=== PATIENT | male | born 1970 | race Caucasian/White ===

== ENCOUNTER 2017-01-20 14:54 | Emergency (ER) | payer BC ==
[2017-01-20 15:01] VITALS: BP 147/102; PULSE 124; TEMP 100.3; BMI 31.8
[2017-01-20] MEDS ORDERED: ACETAMINOPHEN 325 MG TABLET (FP) PO ONE (15:01)
--- NOTE | 2017-01-20 15:59 | PDOC ---
History of Present Illness - General Chief Complaint: Sore Throat Stated Complaint: SORE THROAT,WEAKNESS Time Seen by Provider: 01/20/17 14:57 History Source: Patient Exam Limitations: No Limitations - History of Present Illness Initial Comments: 01/20/17 15:54 CC sore throat, fever, body aches; with cough x today Timing/Duration: 4-6 hours Severity: moderate Associated Symptoms: reports: cough, fever/chills, malaise. denies: chest pain , rash Past History - Past Medical History Allergies/Adverse Reactions: Allergies Allergy/AdvReac Type Severity Reaction Status Date / Time No Known Allergies Allergy Verified 01/20/17 14:57 Home Medications: Ambulatory Orders NK [No Known Home Medication] 08/25/15 Other medical history: Gout - Psycho/Social/Smoking Cessation Hx Anxiety: No Suicidal Ideation: No Smoking Status: No Smoking History: Never smoked Number of Cigarettes Smoked Daily: 0 Hx Alcohol Use: Yes (OCCAS) Drug/Substance Use Hx: No Substance Use Type: Alcohol Review of Systems - Review of Systems Constitutional: Yes: Chills, Fever, Malaise HEENTM: Yes: Nose Congestion. No: Throat Swelling, Mouth Swelling Respiratory: No: Cough Cardiac (ROS): No: Symptoms Reported ABD/GI: No: Symptoms Reported *Physical Exam - Vital Signs Last Vital Signs Temp Pulse Resp BP Pulse Ox 100.3 F H 124 H 19 147/102 97 01/20/17 14:57 01/20/17 14:57 01/20/17 14:57 01/20/17 14:57 01/20/17 14:57 - Physical Exam General Appearance: Yes: Appropriately Dressed. No: Apparent Distress HEENT: positive: TMs Normal, Pharyngeal Erythema, Nasal Congestion, Rhinorrhea, TM Bulging. negative: TM Dull, TM Erythema Neck: positive: Supple, Lymphadenopathy (R), Lymphadenopathy (L). negative: Tender, Rigid Respiratory/Chest: positive: Lungs Clear, Normal Breath Sounds. negative: Respiratory Distress, Accessory Muscle Use Cardiovascular: positive: Regular Rhythm, Regular Rate. negative: Murmur ED Treatment Course - ADDITIONAL ORDERS Additional order review: 01/20/17 15:15 Influenza Types A,B Antigen (MAURY) - Final Nasopharyngeal Swab - Final 01/20/17 14:56 Group A Strep Rapid Antigen - Final Throat Medical Decision Making - Medical Decision Making 01/20/17 15:56 strep negative; flu a positive; will treat with tamiflu *DC/Admit/Observation/Transfer Diagnosis at time of Disposition: Influenza due to influenza virus, type A, human - Discharge Dispostion Disposition: HOME Condition at time of disposition: Stable Admit: No - Patient Instructions Additional Instructions: rest, lots of fluids; rest at home; start tamiflu - Post Discharge Activity Work/School Note: Back to Work
== END 2017-01-20 16:11 | disposition home or self-care (01) ==
LOC: JERFT 14:54
DX: J09.X2 Influenza due to identified novel influenza A virus with other respiratory manifestations (principal)
CPT/HCPCS: 87070; 87430; 87804; 99281-25

== ENCOUNTER 2019-02-02 11:43 | Emergency (ER) | payer BC ==
[2019-02-02 12:05] VITALS: BP 142/92; TEMP 99.6; BMI 33.6
[2019-02-02] MEDS ORDERED: INDOMETHACIN 50 MG CAPSULE PO ONE (12:20)
--- NOTE | 2019-02-02 12:38 | PDOC ---
History of Present Illness - General Chief Complaint: Pain, Acute Stated Complaint: GOUT Time Seen by Provider: 02/02/19 12:05 History Source: Patient - History of Present Illness Occurred: reports: other Lower Extremity Pain Location: left: knee Past History - Past Medical History Allergies/Adverse Reactions: Allergies Allergy/AdvReac Type Severity Reaction Status Date / Time No Known Allergies Allergy Verified 02/02/19 12:14 Home Medications: Ambulatory Orders Allopurinol 300 mg PO DAILY 02/02/19 Colchicine 0.6 mg PO ASDIR #15 capsule 02/02/19 Colchicine [Colcrys] 0.6 mg PO BID 02/02/19 Indomethacin 50 mg PO TID #20 capsule 02/02/19 COPD: No - Immunization History Immunization Up to Date: Yes - Suicide/Smoking/Psychosocial Hx Smoking Status: No Smoking History: Never smoked Number of Cigarettes Smoked Daily: 0 Hx Alcohol Use: Yes (OCCAS) Drug/Substance Use Hx: No Substance Use Type: Alcohol Review of Systems - Review of Systems Constitutional: No: Chills, Fever Musculoskeletal: Yes: Joint Pain, Joint Swelling *Physical Exam - Vital Signs Last Vital Signs Temp Pulse Resp BP Pulse Ox 99.6 F 113 H 16 142/92 99 02/02/19 12:01 02/02/19 12:01 02/02/19 12:01 02/02/19 12:01 02/02/19 12:01 - Physical Exam General Appearance: Yes: Appropriately Dressed. No: Apparent Distress HEENT: positive: Normal Voice Neck: positive: Supple Extremity: positive: Swelling (minimal swelling diffusely to L knee, no erythema or increased warmth, FROMI without sig pain, able to ambulate) Integumentary: positive: Dry, Warm Neurologic: positive: Fully Oriented, Alert, Normal Mood/Affect Moderate Sedation - Procedure Monitoring Vital Signs: Procedure Monitoring Vital Signs Temperature 99.6 F 02/02/19 12:01 Pulse Rate 113 H 02/02/19 12:01 Respiratory Rate 16 02/02/19 12:01 Blood Pressure 142/92 02/02/19 12:01 O2 Sat by Pulse Oximetry (%) 99 02/02/19 12:01 Medical Decision Making - Medical Decision Making 02/02/19 12:28 48-year-old male, pre-diabetic, endorses gout to L great toe and L knee, non- compliant with prophylactic meds, here with left knee pain and swelling 3 days , consistent with his gout per pt. States gout usually triggered by olguin and soda and states " I overindulged in both" at a recent family gathering. No recent trauma. Denies fever or chills. No history of septic joint. See exam Gout flare Non-compliant w/ prophylactic meds Tachycardia of 113 noted at triage, normalized to 98 on rpt without any intervention, no e/o septic joint 1st dose indomethacin given here (no contraindication) -dc w/ same, pt also req colcrys as meds sig reduced sxs in past -pmd f/u *DC/Admit/Observation/Transfer Diagnosis at time of Disposition: Knee pain, left Qualifiers: Chronicity: acute Qualified Code(s): M25.562 - Pain in left knee Gout of knee Qualifiers: Gout etiology: unspecified cause Chronicity: acute Laterality: left Qualified Code(s): M10.9 - Gout, unspecified - Discharge Dispostion Disposition: HOME Condition at time of disposition: Good - Prescriptions Prescriptions: Colchicine 0.6 mg PO ASDIR #15 capsule Indomethacin 50 mg PO TID #20 capsule - Referrals Referrals: Prasanna Lynn MD [Staff Physician] - - Patient Instructions Printed Discharge Instructions: Gout Additional Instructions: You were treated for an acute gout flare of your knee. Take medications as directed and make sure to eat prior to taking meds. You need to reestablish care with a primary care doctor to restart your prophylactic gout medications as discussed today - Post Discharge Activity
[2019-02-02 12:50] VITALS: PULSE 98
== END 2019-02-02 12:49 | disposition home or self-care (01) ==
LOC: JERFT 11:43
DX: M25.562 Pain in left knee (principal); M10.9 Gout, unspecified; R73.03 Prediabetes
CPT/HCPCS: 99281-25

== ENCOUNTER 2019-11-09 16:59 | Emergency (ER) | payer BC ==
[2019-11-09 17:11] VITALS: BP 168/81; PULSE 105; TEMP 98.4; BMI 31.6
[2019-11-09] MEDS ORDERED: KETOROLAC TROMETHAMINE 30 MG/1 ML VIAL ONE (17:25)
[2019-11-09] MEDS ORDERED: morphine SULFATE 4 MG/ML VIAL ONE (17:48)
[2019-11-09] MEDS ORDERED: ONDANSETRON 4 MG/2 ML VIAL IVPUSH ONE ×2 (17:49→17:55)
[2019-11-09] MEDS ORDERED: KETOROLAC TROMETHAMINE 15 MG/ML VIAL IVPUSH ONE (17:49)
[2019-11-09] MEDS ORDERED: SODIUM CHLORIDE 0.9% 500 ML INFUS.BAG IV ONE (17:50)
[2019-11-09] MEDS ORDERED: morphine CARPU-JECT 4 MG/1 ML DISP.SYRIN IVPUSH ONE ×2 (17:55→18:17)
[2019-11-09 18:06] LABS: BASO % 0.6 % (0-2.0); EOS % 3.4 % (0-4.5); HEMATOCRIT 44.8 % (35.4-49); LYMPH % 30.4 % (8-40); MCH 29.3 pg (25.7-33.7); MCHC 33.5 g/dl (32.0-35.9); MEAN CELL VOLUME 87.4 fl (80-96); MEAN PLT VOLUME 8.6 fl (7.5-11.1); MONO % 9.9 % (3.8-10.2); NEUT % 55.7 % (42.8-82.8); PLATELET COUNT 274 K/MM3 (134-434); RBC 5.12 M/mm3 (4.00-5.60); RDW 13.9 % (11.9-15.9); WHITE BLOOD COUNT 7.6 K/mm3 (4.0-10.0)
[2019-11-09] MEDS ORDERED: MORPHINE SULFATE 2 MG/ML VIAL ONE (18:21)
[2019-11-09 18:36] LABS: ALBUMIN 4.2 g/dl (3.4-5.0); BILIRUBIN,TOTAL 0.8 mg/dL (0.2-1); BLOOD UREA NITROGEN 10.8 mg/dL (7-18); CREATININE 1.3 mg/dL (0.55-1.3); TOT PROT 7.8 g/dl (6.4-8.2)
[2019-11-09 18:42] LABS: PH,URINE 5.5 (5.0-8.0); URINE APPEARANCE CLEAR; URINE BILIRUBIN NEGATIVE (NEGATIVE); URINE COLOR YELLOW; URINE GLUCOSE (UA) NEGATIVE (NEGATIVE); URINE KETONE NEGATIVE (NEGATIVE); URINE LEUK ESTERASE NEGATIVE (NEGATIVE); URINE NITRITE NEGATIVE (NEGATIVE); URINE PROTEIN NEGATIVE (NEGATIVE); URINE UROBILINOGEN 0.2 mg/dL (0.2-1.0)
--- NOTE | 2019-11-09 20:03 | PDOC ---
History of Present Illness - General History Source: Patient Exam Limitations: No Limitations <Nyla Palomares - Last Filed: 11/09/19 19:57> <Ngoc Nunez - Last Filed: 11/12/19 14:10> - General Chief Complaint: Pain Stated Complaint: PAIN Time Seen by Provider: 11/09/19 17:27 Past History - Past Medical History COPD: No - Immunization History Immunization Up to Date: Yes - Psycho Social/Smoking Cessation Hx Smoking Status: No Smoking History: Never smoked Number of Cigarettes Smoked Daily: 0 Information on smoking cessation initiated: No Hx Alcohol Use: No Drug/Substance Use Hx: No Substance Use Type: Alcohol <Nyla Palomares - Last Filed: 11/09/19 19:57> <Ngoc Nunez - Last Filed: 11/12/19 14:10> - Past Medical History Allergies/Adverse Reactions: Allergies Allergy/AdvReac Type Severity Reaction Status Date / Time No Known Allergies Allergy Verified 11/09/19 17:06 Home Medications: Ambulatory Orders Allopurinol 300 mg PO DAILY 02/02/19 Colchicine 0.6 mg PO ASDIR #15 capsule 02/02/19 Colchicine [Colcrys] 0.6 mg PO BID 02/02/19 Indomethacin 50 mg PO TID #20 capsule 02/02/19 Oxycodone HCl/Acetaminophen [Percocet 5-325 mg Tablet] 1 - 2 tab PO Q4H PRN #20 tablet MDD 6 11/09/19 *Physical Exam - Vital Signs Last Vital Signs Temp Pulse Resp BP Pulse Ox 98.4 F 105 H 18 168/81 100 11/09/19 17:07 11/09/19 17:07 11/09/19 17:07 11/09/19 17:07 11/09/19 17:07 - Physical Exam General Appearance: Yes: Moderate Distress (due to pain) Respiratory/Chest: positive: Lungs Clear, Normal Breath Sounds. negative: Respiratory Distress Cardiovascular: positive: Regular Rhythm, Regular Rate, S1, S2. negative: Murmur Gastrointestinal/Abdominal: positive: Tender (along RLQ), Soft. negative: Distended, Guarding, Rebound, Hernia, Mass Musculoskeletal: negative: CVA Tenderness (R), CVA Tenderness (L) Integumentary: positive: Normal Color Neurologic: positive: Alert <Nyla Palomares - Last Filed: 11/09/19 19:57> - Vital Signs Last Vital Signs Temp Pulse Resp BP Pulse Ox 98.4 F 105 H 18 168/81 100 11/09/19 17:07 11/09/19 17:07 11/09/19 17:07 11/09/19 17:07 11/09/19 17:07 <Ngoc Nunez - Last Filed: 11/12/19 14:10> ED Treatment Course - LABORATORY CBC & Chemistry Diagram: 11/09/19 17:45 11/09/19 17:45 - ADDITIONAL ORDERS Additional order review: Laboratory Results 11/09/19 11/09/19 18:15 17:45 Sodium 138 Potassium 4.0 Chloride 103 Carbon Dioxide 27 Anion Gap 8 BUN 10.8 Creatinine 1.3 Est GFR (CKD-EPI)AfAm 75.31 Est GFR (CKD-EPI)NonAf 64.98 Random Glucose 110 H Calcium 9.0 Total Bilirubin 0.8 AST 41 H ALT 64 H Alkaline Phosphatase 124 H Total Protein 7.8 Albumin 4.2 Urine Color Yellow Urine Appearance Clear Urine pH 5.5 Ur Specific [place] 1.011 Urine Protein Negative Urine Glucose (UA) Negative Urine Ketones Negative Urine Blood Negative Urine Nitrite Negative Urine Bilirubin Negative Urine Urobilinogen 0.2 Ur Leukocyte Esterase Negative 11/09/19 17:45 RBC 5.12 MCV 87.4 MCHC 33.5 RDW 13.9 MPV 8.6 Neutrophils % 55.7 Lymphocytes % 30.4 Monocytes % 9.9 Eosinophils % 3.4 Basophils % 0.6 - RADIOLOGY Radiology Studies Ordered: Category Date Time Status SPIRAL- RENAL-STONE CT [CT] Stat CT Scan 11/09/19 18:35 Completed - Medications Given in the ED: ED Medications Discontinued Medications Generic Name Dose Route Start Last Admin Trade Name Freq PRN Reason Stop Dose Admin Ketorolac Tromethamine 30 mg 11/09/19 17:49 11/09/19 17:30 Toradol Injection - IVPUSH 11/09/19 17:50 30 mg ONCE ONE Administration Morphine Sulfate 4 mg 11/09/19 17:55 11/09/19 17:58 Morphine Injection - IVPUSH 11/09/19 17:56 4 mg ONCE ONE Administration Morphine Sulfate 2 mg 11/09/19 18:17 11/09/19 18:33 Morphine Injection - IVPUSH 11/09/19 18:18 2 mg ONCE ONE Administration Ondansetron HCl 4 mg 11/09/19 17:49 11/09/19 17:59 Zofran Injection IVPUSH 11/09/19 17:50 4 mg ONCE ONE Administration Ondansetron HCl 4 mg 11/09/19 17:55 11/09/19 19:50 Zofran Injection IVPUSH 11/09/19 17:56 Not Given ONCE ONE Sodium Chloride 1,000 ml 11/09/19 17:50 11/09/19 17:30 Normal Saline - IV 11/09/19 17:51 1,000 ml ONCE ONE Administration <Nyla Palomares - Last Filed: 11/09/19 19:57> - LABORATORY CBC & Chemistry Diagram: 11/09/19 17:45 11/09/19 17:45 - ADDITIONAL ORDERS Additional order review: 11/09/19 18:15 Urine Culture - Final Urine - Urine Clean Catch NO GROWTH OBTAINED 11/09/19 17:45 RBC 5.12 MCV 87.4 MCHC 33.5 RDW 13.9 MPV 8.6 Neutrophils % 55.7 Lymphocytes % 30.4 Monocytes % 9.9 Eosinophils % 3.4 Basophils % 0.6 - Medications Given in the ED: ED Medications Discontinued Medications Generic Name Dose Route Start Last Admin Trade Name Mary PRN Reason Stop Dose Admin Ketorolac Tromethamine 30 mg 11/09/19 17:49 11/09/19 17:30 Toradol Injection - IVPUSH 11/09/19 17:50 30 mg ONCE ONE Administration Morphine Sulfate 4 mg 11/09/19 17:55 11/09/19 17:58 Morphine Injection - IVPUSH 11/09/19 17:56 4 mg ONCE ONE Administration Morphine Sulfate 2 mg 11/09/19 18:17 11/09/19 18:33 Morphine Injection - IVPUSH 11/09/19 18:18 2 mg ONCE ONE Administration Ondansetron HCl 4 mg 11/09/19 17:49 11/09/19 17:59 Zofran Injection IVPUSH 11/09/19 17:50 4 mg ONCE ONE Administration Ondansetron HCl 4 mg 11/09/19 17:55 11/09/19 19:50 Zofran Injection IVPUSH 11/09/19 17:56 Not Given ONCE ONE Sodium Chloride 1,000 ml 11/09/19 17:50 11/09/19 17:30 Normal Saline - IV 11/09/19 17:51 1,000 ml ONCE ONE Administration <Ngoc Nunez - Last Filed: 11/12/19 14:10> Medical Decision Making - Medical Decision Making 49-year-old male history of gout, kidney stones (on the left side, passed on its own) presents for right lower back pain rating down to his groin from today around 3:30 PM. +nausea. Denies fevers, shortness of breath, chest pain, vomiting, hematuria, dysuria. Pain feel similar to his prior kidney stone pain. Spiral CT shows passage of a 2 mm left UVJ stone It also shows a new 1 to 2 mm stone on the right UVJ with mild hydronephrosis Labs reviewed with slightly elevated liver enzymes (patient is already aware of this) CT scan shows fatty liver as well as small left inguinal hernia Patient feels a lot more comfortable after after receiving IV fluids and pain medications Findings discussed with patient Given urine strainer stable for dc 11/09/19 19:58 <Nyla Palomares - Last Filed: 11/09/19 19:57> - Medical Decision Making The patient was seen and evaluated in conjunction with midlevel provider under my direct supervision, ancillary studies were reviewed. I agree with the plan as outlined with JAGDEEP Palomares. HPI, workup/dispo as outlined. VS reviewed, hypertensive and mild tachy 2/2 kidney stone/renal colic UVJ stone on right, mild hydro urine strainer h/o fatty liver, small left inguinal hernia noted, nonobstructed pain controlled uro followup anticipate discharge, pcp/uro followup, return precautions 11/12/19 14:09 11/12/19 14:10 <Ngoc Nunez - Last Filed: 11/12/19 14:10> Discharge - Discharge Information Problems reviewed: Yes - Admission No - Additional Discharge Information Prescription Drug Monitoring Program (I-STOP) results: I-STOP not reviewed <Nyla Palomares - Last Filed: 11/09/19 19:57> <Ngoc Nunez - Last Filed: 11/12/19 14:10> - Discharge Information Clinical Impression/Diagnosis: Kidney stone on right side Condition: Improved Disposition: HOME - Additional Discharge Information Prescriptions: Oxycodone HCl/Acetaminophen [Percocet 5-325 mg Tablet] 1 - 2 tab PO Q4H PRN #20 tablet MDD 6 PRN Reason: Pain - Follow up/Referral Referrals: Mitchell Angulo MD [Staff Physician] - 2 Days - Patient Discharge Instructions Patient Printed Discharge Instructions: DI for Kidney Stones Additional Instructions: Thank you for choosing [facility]. It was a pleasure taking care of you. You may take Motrin 600 mg every 6 hours by mouth as needed for mild to moderate pain. Take Motrin with food. For severe pain, you may take Percocet. This medication can make you constipated for which you may take over the counter Senna tablets as needed. This medication can also make you drowsy so please be cautious with driving or performing heavy physical work. Drink at least 2-3L of water daily Use urine strainer to catch stone You were also referred to urologist Return to the Emergency Department if your symptoms worsen or persist, you have fever, unable to urine, severe abdominal/flank pain or other concerning symptoms.
--- NOTE | 2019-11-13 11:00 | PATH ---
Surgical Pathology Report Patient Name: TERRY DAILY Med. Rec. #: [id number] /Age/Gender: 1970 (Age: 49) / M Account: [id number] Location: EMERGENCY ROOM Taken: 11/09/2019 Received: 11/12/2019 Reported: 11/13/2019 Physicians: Judith Muro Specimen(s) Received RENAL STONE Clinical History Renal colic, right flank pain, history of kidney stones Final Diagnosis RENAL STONE, PASSAGE: RENAL CALCULI. MACROSCOPIC DIAGNOSIS. Electronically Signed Maryse Causey M.D. Gross Description Received fresh labeled with the patient's name and indicated on the requisition to be a renal stone, is a 0.1 cm greatest dimension brown, irregular calculus which is sent for chemical analysis. /11/12/201911/12/2019
== END 2019-11-09 20:45 | disposition home or self-care (01) ==
LOC: JER 16:59
PROC: 3E0333Z Introduction of Anti-inflammatory into Peripheral Vein, Percutaneous Approach (ICD-10-PCS; principal; 2019-11-09)
PROC: 3E033NZ Introduction of Analgesics, Hypnotics, Sedatives into Peripheral Vein, Percutaneous Approach (ICD-10-PCS; 2019-11-09)
PROC: 3E033GC Introduction of Other Therapeutic Substance into Peripheral Vein, Percutaneous Approach (ICD-10-PCS; 2019-11-09)
PROC: 3E0337Z Introduction of Electrolytic and Water Balance Substance into Peripheral Vein, Percutaneous Approach (ICD-10-PCS; 2019-11-09)
DX: N20.0 Calculus of kidney (principal)
CPT/HCPCS: 36415; 74176-TC; 80053; 81003; 82360; 85025; 87086; 88300-TC; 99282-25

== ENCOUNTER 2021-01-08 00:48 | Inpatient (IN) | payer BC, OTHER ==
[2021-01-08] MEDS ORDERED: KETOROLAC TROMETHAMINE 30 MG/1 ML VIAL IVPUSH ONE (01:12)
[2021-01-08] MEDS ORDERED: SODIUM CHLORIDE 0.9% 500 ML INFUS.BAG IV ONE (01:12)
[2021-01-08] MEDS ORDERED: ONDANSETRON 4 MG/2 ML VIAL IVPUSH ONE (01:12)
[2021-01-08] MEDS ORDERED: KETOROLAC TROMETHAMINE 30 MG/1 ML VIAL ONE (01:19)
[2021-01-08] MEDS ORDERED: ONDANSETRON 4 MG/2 ML VIAL ONE (01:20)
[2021-01-08 01:37] LABS: BASO % 0.6 % (0-2.0); EOS % 1.8 % (0-4.5); HEMATOCRIT 45.1 % (35.4-49); HEMOGLOBIN 15.3 GM/dL (11.7-16.9); LYMPH % 25.7 % (8-40); MCHC 33.8 g/dl (32.0-35.9); MEAN CELL VOLUME 85.8 fl (80-96); MEAN PLT VOLUME 8.3 fl (7.5-11.1); MONO % 11.7 % (3.8-10.2); NEUT % 60.2 % (42.8-82.8); PLATELET COUNT 290 K/MM3 (134-434); RBC 5.25 M/mm3 (4.00-5.60); RDW 13.3 % (11.9-15.9); WHITE BLOOD COUNT 10.7 K/mm3 (4.0-10.0)
[2021-01-08] MEDS ORDERED: HYDROmorphone HCL CARPU-JECT 2 MG/1 ML DISP.SYRIN IVPUSH ONE (01:37)
[2021-01-08] MEDS ORDERED: HYDROmorphone HCl 2 MG/ML VIAL ONE (01:38)
[2021-01-08 01:59] LABS: POTASSIUM 3.7 mmol/L (3.5-5.1)
[2021-01-08 02:01] LABS: ALBUMIN 4.2 g/dl (3.4-5.0); BLOOD UREA NITROGEN 16.4 mg/dL (7-18); CALCIUM 8.8 mg/dL (8.5-10.1)
[2021-01-08 02:04] LABS: CREATININE 1.7 mg/dL (0.55-1.3)
[2021-01-08 02:06] LABS: BILIRUBIN,TOTAL 0.8 mg/dL (0.2-1)
[2021-01-08] MEDS ORDERED: CEFTRIAXONE 1 GM in DEXTROSE 5%-WATER - 100 ML IVPB ONE (03:30)
[2021-01-08] MEDS ORDERED: CEFTRIAXONE 1 GM/50 ML BAG ONE (03:56)
[2021-01-08] MEDS: SODIUM CHLORIDE 1,000 ML IV SCH (07:25)
[2021-01-08 08:23] LABS: PH,URINE 7.5 (5.0-8.0); URINE APPEARANCE CLEAR; URINE BILIRUBIN NEGATIVE (NEGATIVE); URINE COLOR YELLOW; URINE GLUCOSE (UA) NEGATIVE (NEGATIVE); URINE KETONE TRACE (NEGATIVE); URINE LEUK ESTERASE NEGATIVE (NEGATIVE); URINE NITRITE NEGATIVE (NEGATIVE); URINE PROTEIN NEGATIVE (NEGATIVE); URINE UROBILINOGEN 0.2 mg/dL (0.2-1.0)
[2021-01-08] MEDS ORDERED: CEFTRIAXONE 1 GM in DEXTROSE 5%-WATER - 50 ML IVPB SCH ×2 (10:00→10:47)
[2021-01-08] MEDS: oxyCODONE HCL 5 MG TABLET PO PRN (10:41)
[2021-01-08] MEDS: ACETAMINOPHEN 325 MG TABLET (FP) PO PRN (10:43)
[2021-01-08] MEDS ORDERED: ACETAMINOPHEN 325 MG TABLET (FP) PO PRN (10:45)
[2021-01-08 10:56] VITALS: BMI 32.8
[2021-01-08] MEDS ORDERED: cefTRIAXone SODIUM 1 GM VIAL ONE (11:05)
[2021-01-08] MEDS ORDERED: DEXTROSE 5%-WATER - 50 ML IVPB ONE (11:06)
[2021-01-08] MEDS: CEFTRIAXONE 1 GM in DEXTROSE 5%-WATER - 50 ML IVPB SCH (11:15)
[2021-01-08] MEDS ORDERED: MORPHINE SULFATE 2 MG/ML VIAL IVPUSH PRN (11:25)
[2021-01-08] MEDS ORDERED: PT OWN MED DRAWER 7, Y5N ONE (15:57)
[2021-01-08] MEDS: TAMSULOSIN HCL 0.4 MG CAP PO SCH (15:58)
[2021-01-08] MEDS: ALLOPURINOL 300 MG TABLET (FP) PO SCH (18:14)
[2021-01-09] MEDS: SODIUM CHLORIDE 1,000 ML IV SCH ×2 (06:39→18:21)
[2021-01-09] MEDS ORDERED: PT OWN MED DRAWER 7, Y5N ONE (09:12)
[2021-01-09] MEDS ORDERED: DEXTROSE 5%-WATER - 50 ML IVPB ONE (09:12)
[2021-01-09] MEDS ORDERED: cefTRIAXone SODIUM 1 GM VIAL ONE (09:12)
[2021-01-09 09:14] LABS: BASO % 0.6 % (0-2.0); EOS % 1.3 % (0-4.5); HEMATOCRIT 42.3 % (35.4-49); HEMOGLOBIN 14.5 GM/dL (11.7-16.9); LYMPH % 16.4 % (8-40); MCH 29.5 pg (25.7-33.7); MCHC 34.2 g/dl (32.0-35.9); MEAN CELL VOLUME 86.1 fl (80-96); MEAN PLT VOLUME 8.6 fl (7.5-11.1); MONO % 10.2 % (3.8-10.2); NEUT % 71.5 % (42.8-82.8); PLATELET COUNT 245 K/MM3 (134-434); RBC 4.91 M/mm3 (4.00-5.60); RDW 13.3 % (11.9-15.9)
[2021-01-09] MEDS: oxyCODONE HCL 5 MG TABLET PO PRN ×2 (09:19→17:18)
[2021-01-09] MEDS: TAMSULOSIN HCL 0.4 MG CAP PO SCH (09:19)
[2021-01-09] MEDS: ALLOPURINOL 300 MG TABLET (FP) PO SCH (09:19)
[2021-01-09] MEDS: CEFTRIAXONE 1 GM in DEXTROSE 5%-WATER - 50 ML IVPB SCH (09:20)
[2021-01-09 09:53] LABS: ALBUMIN 3.6 g/dl (3.4-5.0); CALCIUM 8.4 mg/dL (8.5-10.1)
[2021-01-09 09:56] LABS: BLOOD UREA NITROGEN 12.7 mg/dL (7-18); CREATININE 2.1 mg/dL (0.55-1.3)
[2021-01-09 09:58] LABS: TOT PROT 7.2 g/dl (6.4-8.2)
[2021-01-09 10:01] LABS: BILIRUBIN,TOTAL 1.7 mg/dL (0.2-1)
[2021-01-09] MEDS: POLYETHYLENE GLYCOL 3350 119 GM BTL PO SCH (18:19)
[2021-01-09] MEDS ORDERED: TAMSULOSIN HCL 0.4 MG CAP PO ONE (20:30)
[2021-01-10] MEDS: SODIUM CHLORIDE 1,000 ML IV SCH ×2 (01:19→21:49)
[2021-01-10] MEDS ORDERED: PT OWN MED DRAWER 7, Y5N ONE (10:01)
[2021-01-10] MEDS ORDERED: DEXTROSE 5%-WATER - 50 ML IVPB ONE (10:01)
[2021-01-10] MEDS ORDERED: cefTRIAXone SODIUM 1 GM VIAL ONE (10:01)
[2021-01-10] MEDS: ALLOPURINOL 300 MG TABLET (FP) PO SCH (10:07)
[2021-01-10] MEDS: TAMSULOSIN HCL 0.4 MG CAP PO SCH (10:07)
[2021-01-10] MEDS: CEFTRIAXONE 1 GM in DEXTROSE 5%-WATER - 50 ML IVPB SCH (10:07)
[2021-01-10 10:08] LABS: HEMATOCRIT 40.2 % (35.4-49); HEMOGLOBIN 13.9 GM/dL (11.7-16.9); MCH 29.2 pg (25.7-33.7); MCHC 34.5 g/dl (32.0-35.9); MEAN CELL VOLUME 84.7 fl (80-96); MEAN PLT VOLUME 8.4 fl (7.5-11.1); PLATELET COUNT 235 K/MM3 (134-434); RBC 4.75 M/mm3 (4.00-5.60); RDW 13.2 % (11.9-15.9); WHITE BLOOD COUNT 8.4 K/mm3 (4.0-10.0)
[2021-01-10] MEDS: POLYETHYLENE GLYCOL 3350 119 GM BTL PO SCH (10:08)
[2021-01-10 10:42] LABS: ALBUMIN 3.5 g/dl (3.4-5.0); BLOOD UREA NITROGEN 12.9 mg/dL (7-18); CREATININE 2.2 mg/dL (0.55-1.3); PHOSPHOROUS 2.2 mg/dL (2.5-4.9)
[2021-01-10 10:43] LABS: CALCIUM 8.4 mg/dL (8.5-10.1)
[2021-01-10 10:44] LABS: BILIRUBIN,TOTAL 1.6 mg/dL (0.2-1); TOT PROT 6.9 g/dl (6.4-8.2)
[2021-01-10 11:12] LABS: POTASSIUM 3.9 mmol/L (3.5-5.1)
[2021-01-10] MEDS: oxyCODONE HCL 5 MG TABLET PO PRN (11:59)
[2021-01-10] MEDS: ACETAMINOPHEN 325 MG TABLET (FP) PO PRN (18:51)
[2021-01-11 06:04] VITALS: BP 147/93; PULSE 75; TEMP 97.2
[2021-01-11] MEDS ORDERED: PT OWN MED DRAWER 7, Y5N ONE ×2 (06:16→09:57)
[2021-01-11] MEDS ORDERED: DEXTROSE 5%-WATER - 50 ML IVPB ONE (09:57)
[2021-01-11] MEDS ORDERED: cefTRIAXone SODIUM 1 GM VIAL ONE (09:57)
[2021-01-11] MEDS: TAMSULOSIN HCL 0.4 MG CAP PO SCH (10:00)
[2021-01-11] MEDS: ALLOPURINOL 300 MG TABLET (FP) PO SCH (10:00)
[2021-01-11] MEDS: POLYETHYLENE GLYCOL 3350 119 GM BTL PO SCH (10:01)
[2021-01-11] MEDS: CEFTRIAXONE 1 GM in DEXTROSE 5%-WATER - 50 ML IVPB SCH (10:01)
[2021-01-11 10:02] LABS: BASO % 0.9 % (0-2.0); EOS % 3.5 % (0-4.5); HEMATOCRIT 41.1 % (35.4-49); HEMOGLOBIN 14.3 GM/dL (11.7-16.9); LYMPH % 18.9 % (8-40); MCH 29.5 pg (25.7-33.7); MCHC 34.7 g/dl (32.0-35.9); MEAN CELL VOLUME 85.2 fl (80-96); MEAN PLT VOLUME 8.5 fl (7.5-11.1); MONO % 10.5 % (3.8-10.2); NEUT % 66.2 % (42.8-82.8); PLATELET COUNT 230 K/MM3 (134-434); RBC 4.82 M/mm3 (4.00-5.60); RDW 13.2 % (11.9-15.9); WHITE BLOOD COUNT 6.9 K/mm3 (4.0-10.0)
[2021-01-11 10:22] LABS: POTASSIUM 4.3 mmol/L (3.5-5.1)
[2021-01-11 10:24] LABS: CALCIUM 8.7 mg/dL (8.5-10.1)
[2021-01-11 10:25] LABS: ALBUMIN 3.6 g/dl (3.4-5.0); BLOOD UREA NITROGEN 9.2 mg/dL (7-18)
[2021-01-11 10:28] LABS: CREATININE 1.4 mg/dL (0.55-1.3)
[2021-01-11 10:32] LABS: TOT PROT 7.3 g/dl (6.4-8.2)
[2021-01-11 10:33] LABS: BILIRUBIN,TOTAL 1.4 mg/dL (0.2-1)
[2021-01-13 14:07] LABS: TOTAL PROTEIN, URINE <4.0 mg/dL (Not Estab.)
== END 2021-01-11 14:35 | disposition home or self-care (01) | DRG 684 ==
LOC: JER 00:48 → JERBED 04:15 → J6S 09:36
PROVIDERS: ADMIT Internal Medicine; ATTEND Internal Medicine
DX: N17.9 Acute kidney failure, unspecified (principal); N13.2 Hydronephrosis with renal and ureteral calculous obstruction; I77.9 Disorder of arteries and arterioles, unspecified; M10.9 Gout, unspecified; E78.5 Hyperlipidemia, unspecified; K59.03 Drug induced constipation; T40.2X5A Adverse effect of other opioids, initial encounter; E11.9 Type 2 diabetes mellitus without complications; N13.9 Obstructive and reflux uropathy, unspecified; Z79.1 Long term (current) use of non-steroidal anti-inflammatories (NSAID)
CPT/HCPCS: 36415; 71045-TC-FY; 74176-TC; 77074-TC-FY; 80053; 81003; 82360; 82378; 82565; 83690; 84100; 84155; 84156; 84165; 84166; 84300; 85025; 85027; 86300; 86301; 86304; 87086; 87205; 93005; 93010; 99285-25; C9803; U0003

== ENCOUNTER 2022-05-18 08:48 | Day surgery (SDC) | payer BC, OTHER ==
[2022-05-11 17:11] VITALS: BMI 30.9
[2022-05-18] MEDS ORDERED: TRANEXAMIC ACID 1000 MG/10 ML VIAL IVPUSH ONE (09:03)
[2022-05-18] MEDS ORDERED: CEFAZOLIN 2 GM in DEXTROSE 5%-WATER - 50 ML IVPB ONE (09:03)
[2022-05-18] MEDS ORDERED: CELECOXIB 200 MG CAPSULE ONE (10:04)
[2022-05-18] MEDS: CELECOXIB 200 MG CAPSULE PO ONE ×2 (10:07→19:19)
[2022-05-18] MEDS ORDERED: BUPIVACAINE HCL/PF 0.5% (5 MG/ML) 30 ML VIAL IJ ONE (13:10)
[2022-05-18] MEDS ORDERED: BUPIVACAINE HCL/PF 0.5% (5MG/ML) 10 ML VIAL ONE (13:11)
[2022-05-18] MEDS ORDERED: MIDAZOLAM HCL 2 MG/2 ML SINGLE DOSE VIAL ONE (13:11)
[2022-05-18] MEDS ORDERED: ceFAZolin SODIUM 1 GM VIAL ONE ×2 (13:22→21:08)
[2022-05-18] MEDS ORDERED: THROMBIN (BOVINE) 5,000 UNIT VIAL TP ONE (13:30)
[2022-05-18] MEDS ORDERED: ONDANSETRON 4 MG/2 ML VIAL IVPUSH PRN (13:44)
[2022-05-18] MEDS ORDERED: LACTATED RINGERS SOLUTION 1,000 ML IV SCH (13:45)
[2022-05-18] MEDS ORDERED: BUPIVICAINE 0.25%/MORPH PF/KETOROLAC - 51ML DISP.SYRINGE IA ONE (14:40)
[2022-05-18] MEDS ORDERED: oxyCODONE HCL 5 MG TABLET PO PRN (15:42)
[2022-05-18] MEDS ORDERED: ACETAMINOPHEN INJECTION 100 ML IVPB ONE (15:54)
[2022-05-18] MEDS: ACETAMINOPHEN 1000 MG/100 ML BAG IVPB ONE ×2 (15:57→19:19)
[2022-05-18] MEDS: ACETAMINOPHEN 500 MG TABLET (FP) PO SCH ×2 (19:19→21:24)
[2022-05-18] MEDS ORDERED: DEXTROSE 5%-WATER - 50 ML IVPB ONE (21:08)
[2022-05-18] MEDS: CEFAZOLIN 2 GM in DEXTROSE 5%-WATER - 50 ML IVPB SCH (21:25)
[2022-05-18] MEDS: SENNOSIDES/DOCUSATE COMBO (SENNA PLUS) TABLET (UD) PO SCH (21:29)
[2022-05-19] MEDS: ACETAMINOPHEN 500 MG TABLET (FP) PO SCH ×2 (04:04→09:06)
[2022-05-19] MEDS: oxyCODONE HCL 5 MG TABLET PO PRN ×2 (06:05→09:07)
[2022-05-19] MEDS: CEFAZOLIN 2 GM in DEXTROSE 5%-WATER - 50 ML IVPB SCH (06:07)
[2022-05-19] MEDS ORDERED: ASPIRIN 325 MG TABLET PO SCH (08:00)
[2022-05-19] MEDS: SENNOSIDES/DOCUSATE COMBO (SENNA PLUS) TABLET (UD) PO SCH (09:06)
[2022-05-19] MEDS ORDERED: MULTIVITAMINS (DAILY MVI) TABLET (FP) PO SCH (10:00)
[2022-05-19] MEDS ORDERED: ALLOPURINOL 300 MG TABLET (FP) PO SCH (10:00)
[2022-05-19] MEDS ORDERED: PANTOPRAZOLE 40 MG TABLET PO SCH (10:00)
[2022-05-19 14:02] VITALS: BP 146/75; PULSE 79; TEMP 98.2
== END 2022-05-19 14:55 | disposition home health service (06) ==
LOC: FASUSAT 08:48 → FM/S 17:15 → FASUSAT 05-19 14:55
PROVIDERS: ATTEND Orthopaedic Surgery
PROC: 8E0YXBZ Computer Assisted Procedure of Lower Extremity (ICD-10-PCS; 2022-05-18)
PROC: 8E0Y0CZ Robotic Assisted Procedure of Lower Extremity, Open Approach (ICD-10-PCS; 2022-05-18)
PROC: 0SRC0J9 Replacement of Right Knee Joint with Synthetic Substitute, Cemented, Open Approach (ICD-10-PCS; principal; 2022-05-18 13:59)
DX: M17.11 Unilateral primary osteoarthritis, right knee (principal); I10 Essential (primary) hypertension; E78.5 Hyperlipidemia, unspecified
CPT/HCPCS: 20985; 27447; C1776; S2900; 73560-TC-RT-FY; 94760; 97010-GP; 97116-GP; 97162-GP

== ENCOUNTER 2024-01-02 04:34 | Day surgery (SDC) | payer BC, OTHER ==
[2023-12-30 09:46] VITALS: BMI 30.3
[2024-01-02 11:54] VITALS: BP 130/80; PULSE 76; RESP 14; TEMP 97.3
== END 2024-01-02 11:55 | disposition home or self-care (01) ==
LOC: JASU-ENDO 04:34
PROVIDERS: ATTEND Internal Medicine Gastroenterology
PROC: 0DBH8ZX Excision of Cecum, Via Natural or Artificial Opening Endoscopic, Diagnostic (ICD-10-PCS; 2024-01-02)
PROC: 0DBP8ZX Excision of Rectum, Via Natural or Artificial Opening Endoscopic, Diagnostic (ICD-10-PCS; 2024-01-02)
PROC: 0DBN8ZX Excision of Sigmoid Colon, Via Natural or Artificial Opening Endoscopic, Diagnostic (ICD-10-PCS; principal; 2024-01-02 11:00)
DX: Z12.11 Encounter for screening for malignant neoplasm of colon (principal); D12.0 Benign neoplasm of cecum; D12.8 Benign neoplasm of rectum; K63.5 Polyp of colon; K64.8 Other hemorrhoids; K57.30 Diverticulosis of large intestine without perforation or abscess without bleeding
CPT/HCPCS: 88305-TC

== ENCOUNTER 2024-06-21 09:14 | Emergency (ER) | payer BC, OTHER ==
[2024-06-21 09:35] VITALS: BP 132/86; PULSE 96; RESP 18; TEMP 98.8; BMI 31.1
[2024-06-21] MEDS ORDERED: PANTOPRAZOLE SODIUM 40 MG VIAL ONE ×2 (09:57→10:32)
[2024-06-21] MEDS ORDERED: ACETAMINOPHEN INJECTION 100 ML IVPB ONE (09:57)
[2024-06-21] MEDS: ACETAMINOPHEN 1000 MG/100 ML BAG IVPB ONE (10:10)
[2024-06-21 10:31] LABS: INR 1.01 (0.83-1.09); PROTHROMBIN TIME (PATIENT) 11.5 SEC (9.7-13.0)
[2024-06-21 10:34] LABS: ACTIVATED PTT 27.6 SECONDS (25.2-36.5)
[2024-06-21 10:34] LABS: HEMATOCRIT 47.6 % (35.4-49); HEMOGLOBIN 15.8 G/dL (11.7-16.9); MCH 29.1 pg (25.7-33.7); MCHC 33.2 g/dl (32.0-35.9); MEAN CELL VOLUME 87.5 fl (80-96); MEAN PLT VOLUME 8.7 fl (7.5-11.1); PLATELET COUNT 242.4 10^3/uL (134-434); RBC 5.44 10^6/uL (4.00-5.60); WHITE BLOOD COUNT 8.3 10^3/uL (4.0-10.8)
[2024-06-21] MEDS: PANTOPRAZOLE SODIUM 40 MG VIAL IVPUSH ONE (10:35)
[2024-06-21 10:42] LABS: ALBUMIN 4.4 g/dl (3.4-5.0); BILIRUBIN,TOTAL 1.1 mg/dl (0.2-1); CALCIUM 9.2 mg/dl (8.5-10.1); CREATININE 1.3 mg/dl (0.6-1.3); POTASSIUM 3.9 mmol/L (3.5-5.1); TOT PROT 7.3 g/dl (6.4-8.2)
[2024-06-21 10:45] LABS: PLATELET ESTIMATE ADEQUATE
== END 2024-06-21 12:25 | disposition home or self-care (01) ==
LOC: FER 09:14
PROC: 3E033NZ Introduction of Analgesics, Hypnotics, Sedatives into Peripheral Vein, Percutaneous Approach (ICD-10-PCS; principal; 2024-06-21)
PROC: 3E033GC Introduction of Other Therapeutic Substance into Peripheral Vein, Percutaneous Approach (ICD-10-PCS; 2024-06-21)
DX: R10.33 Periumbilical pain (principal); R19.7 Diarrhea, unspecified; R50.9 Fever, unspecified; R11.0 Nausea
CPT/HCPCS: 36415; 74177-TC; 80053; 81003; 81015; 82272; 83690; 85027; 85610; 85730; 86850; 86900; 86901; 87086; 93005; 99285-25; J0131; Q9967